=== PATIENT | male | born 1970 | race Two or more races ===

== ENCOUNTER 2024-01-03 08:35 | Emergency (ER) | payer OTHER ==
[~2024-01-03] VITALS: Ht 172.7 cm; Wt 90.7 kg
[~2024-01-03 08:35] MED LIST: LAMICTAL XR100 MG PO; PERCOCET 5/3251 TAB PO; TEMAZEPAM30 MG PO; ZOLOFT100 MG PO
[2024-01-03] MEDS ORDERED: EFFEXOR XR150 MG PO (09:03)
[2024-01-03] MEDS ORDERED: CLONAZEPAM1 MG PO (09:04)
[2024-01-03 11:37] LABS: HEMATOCRIT 40.7 % (39.0-48.0); HEMOGLOBIN 13.8 g/dL (13-16.00); MEAN CELL VOLUME 91.4 fL (80.0-100.00); MEAN CORPUSCULAR HEMOGLOBIN 30.9 pg (27.00-32.0); MEAN CORPUSCULAR HGB CONC 33.8 g/dl (32.0-36.0); PLATELET COUNT 271 K/uL (150-450); RED BLOOD COUNT 4.46 M/uL (4.00-6.00); RED CELL DISTRIBUTION WIDTH 13.4 % (11.5-14.5)
[2024-01-03 12:07] LABS: CREATININE SERUM 0.9 mg/dL (0.70-1.30); GFR 88.96; POTASSIUM 4.4 mEq/L (3.5-5.1)
== END 2024-01-03 13:32 | disposition home or self-care (01) ==
LOC: ER 08:36
PROVIDERS: General Practice
DX: R00.2 Palpitations (principal)

== ENCOUNTER → 2025-03-09 | Emergency (ER) | payer OTHER ==
[~2025-03-09] VITALS: Ht 172.7 cm; Wt 90.7 kg
[~2025-03-09] MED LIST changes: +CLONAZEPAM1 MG PO; +DIPHTH,PERTUSS(ACELL),TET VAC 0.5 ML SYRINGE IM ONE; +EFFEXOR XR150 MG PO; +TETANUS & DIPHTHERIA TOX,ADULT 0.5 ML VIAL IM STA
== END | disposition home or self-care (01) ==
LOC: ER 10:37
DX: S61.256A Open bite of right little finger without damage to nail, initial encounter (principal); W55.01XA Bitten by cat, initial encounter; Y93.89 Activity, other specified; Y92.488 Other paved roadways as the place of occurrence of the external cause; Y99.8 Other external cause status
CPT/HCPCS: 90471; 90714; J1670